=== PATIENT | male | born 1980 | race Caucasian/White ===

== ENCOUNTER 2019-05-15 13:22 | Emergency (ER) | payer OTHER ==
[~2019-05-15] VITALS: Ht 172.7 cm; Wt 90.7 kg
[2019-05-15 13:52] VITALS: BP 131/65
[2019-05-15] MEDS ORDERED: LIDOCAINE 1% VIAL ONE (13:53)
[2019-05-15] MEDS ORDERED: TRIPLE ANTIBIOTIC OINTMENT TP ONE (13:53)
[2019-05-15] MEDS ORDERED: ADACEL VIAL IM ONE ×2 (14:00→14:23)
--- NOTE | 2019-05-15 14:04 | ER.PDOC ---
General Chief Complaint: Extremities Stated Complaint: CUT THUMB Time seen by MD: 14:01 Source: patient Exam Limitations: no limitations History of Present Illness Initial Comments Laceration left thumb Occurred: just prior to arrival Where: home Severity: moderate Context: laceration Allergies: Coded Allergies: No Known Drug Allergies (Verified Allergy, Unknown, 05/15/19) Past Medical History Medical History: no pertinent history Surgical History: appendectomy, shoulder, other Social History Smoking: non-smoker Alcohol Use: none Drug Use: none Review of Systems Constitutional: no symptoms reported EENTM: no symptoms reported Respiratory: no symptoms reported Cardiovascular: no symptoms reported Gastrointestinal: no symptoms reported Skin: see HPI All Other Systems: Reviewed and Negative Physical Exam General Appearance: Alert, No Apparent Distress Hand: see diagram Wrist: nml inspection, non-tender, nml ROM 1 - Lac left thumb Neuro: sensation nml, motor nml Vascular: no vascular compromise Tendons: tendon function nml Forearm/Elbow/Arm: uninjured above wrist Head/ENT: nml inspection, pharynx nml Neck/Back: nml inspection, non-tender Resp/CVS: no resp distress, lungs clear, heart sounds nml, reg. rate & rhythm Abdomen: non-tender, no organomegaly ED LACERATION WOUND REPAIR # of Wounds/Lacerations Presen: 1 Wound Location & Length (Requi: left Wound Length (cm): 2 Wound cleaned: betadine Anesthesia type: digital block Anesthesia: 1% Lidocaine Volume Anesthetic (ccs): 10 Wound's Depth, Shape: linear Irrigated w/ Saline (ccs): 30 Wound Repaired With: sutures Suture Size/Type: 4:0, ethilon Suture Style: interupted Number of Sutures: 3 Sterile Dressing Applied?: Yes Results/Orders Results/Orders Orders - ROBB LEROY MD Lidocaine Hcl (Lidocaine 1% Vial) (05/15/19 13:53) Neomycin/Bacitracin/Polymyxinb (Triple A (05/15/19 13:53) Diph,Pertuss(Acell),Tet Vac/Pf (Adacel V (05/15/19 14:00) Diph,Pertuss(Acell),Tet Vac/Pf (Adacel V (05/15/19 14:23) Vital Signs Date Time Temp Pulse Resp B/P (MAP) Pulse Ox O2 Delivery O2 Flow Rate FiO2 05/15/19 13:52 98.2 82 16 131/65 (87) 96 Room Air 05/15/19 13:49 98.2 82 16 05/15/19 13:49 98.2 82 16 96 Room Air Departure Time of Disposition: 14:31 Disposition: 01 HOME, SELF-CARE Impression: Primary Impression: Laceration of thumb, left Condition: Stable Referrals: PCP,UNKNOWN (PCP) PRIMARY CARE PROVIDER Additional Instructions: Keflex Ibuprofen Apply Neosporin daily Remove sutures in 8 days at your PCP or ED Duration or Time Spent with Pa: 45 mins Problem Qualifiers Primary Impression: Laceration of thumb, left Encounter type: initial encounter Damage to nail status: without damage Foreign body presence: without foreign body Qualified Codes: S61.012A - Laceration without foreign body of left thumb without damage to nail, initial encounter ROBB LEROY MD May 15, 2019 14:04
--- NOTE | 2019-05-15 14:48 | NUR ---
DRESSING NEOSPORIN PLACED ON WOUND AND DRESSING APPLIED
[2019-05-15 14:51] VITALS: BP 131/65
== END 2019-05-15 14:50 | disposition home or self-care (01) ==
LOC: ER 13:22
DX: S61.012A Laceration without foreign body of left thumb without damage to nail, initial encounter (principal); Z90.49 Acquired absence of other specified parts of digestive tract; Z98.890 Other specified postprocedural states; W26.8XXA Contact with other sharp object(s), not elsewhere classified, initial encounter; Y93.89 Activity, other specified; Y92.098 Other place in other non-institutional residence as the place of occurrence of the external cause; Y99.8 Other external cause status
CPT/HCPCS: 12001; 90471; 90715; 99283; J2001